=== PATIENT | male | born 1990 | race African-American/Black ===

== ENCOUNTER 2019-11-21 09:59 | Emergency (ER) | payer MEDICAID ==
[~2019-11-21] VITALS: Ht 172.7 cm; Wt 173.3 kg
[2019-11-21 09:59] VITALS: BP_SYST 101
[2019-11-21 12:11] VITALS: BP_SYST 101
== END 2019-11-21 12:10 | disposition home or self-care (01) ==
LOC: SED 09:59
DX: R07.89 Other chest pain (principal)
CPT/HCPCS: 93005; 99283